=== PATIENT | male | born 1995 | race Caucasian/White ===

== ENCOUNTER 2025-08-13 11:06 | Emergency (ER) | payer OTHER, SELFPAY ==
[2025-08-13 11:09] VITALS: BP 155/95; BMI 34.6
[2025-08-13 11:11] VITALS: BP 155/95
[2025-08-13 11:14] VITALS: BP 147/110
--- NOTE | 2025-08-13 11:57 | ED.GENMED ---
History of Present Illness
General
Chief Complaint: Blood Pressure Problem
Source: patient and police
Exam Limitations: none
Time Seen by Provider: 08/13/25 11:42
History of Present Illness
History of Present Illness:
30yoM with a history of bipolar disorder, anxiety, substance use on methadone, seizures, and hypertension presenting with correctional officers for medical clearance. Patient is in the process of being transferred from [place] to [facility]. There was a transition to a new electronic medical record yesterday and patient missed several doses of his home medications including his antihypertensives, Keppra, and methadone. Patient arrived to the new facility today
and upon intake, his blood pressure was elevated at 166/140 and he was sent to the ED for evaluation. Patient states he feels like 'shit' because he is starting to have withdrawal symptoms after missing his methadone. He states that he knows his
body and just wants to resume his normal home medications. No current chest pain or shortness of breath. He takes propranolol 10mg BID and clonidine 0.2mg Q8 for his blood pressure.
Phy Exam
General Physical Exam
General Presentation: well appearing and no apparent distress
General Skin: warm and dry
General Habitus: normal
General Mental: alert
General Hydration: appears well hydrated
ENT Exam
ENT Exam: normocephalic
Cardiovascular Exam
Cardiovascular Exam: regular rate/rhythm and no murmur
Pulmonary Exam
Pulmonary Exam: lungs clear, no respiratory distress, no rales, no crackles, no rhonchi and no wheezing
Neurological Exam
Neurological Exam: alert
[place] Coma Scale
Eye Opening: Spontaneous
Verbal Response: Oriented
Motor Response: Obeys Commands
GCS Total Score: 15
Skin Exam
Skin Exam: normal color and warm/dry
Psychiatric Exam
Psychiatric Exam: normal mood/affect
Course
Vital Signs
Initial and Last Documented VS:
Initial Vital Signs
Temp Pulse Resp BP Pulse Ox
98.2 F 67 16 155/95 100
08/13/25 11:09 08/13/25 11:09 08/13/25 11:09 08/13/25 11:09 08/13/25 11:09
Last Documented Vital Signs
Temp Pulse Resp BP Pulse Ox
98.2 F 74 16 133/98 100
08/13/25 11:09 08/13/25 12:07 08/13/25 12:07 08/13/25 12:07 08/13/25 12:07
MDM/Problems Addressed
Differential Diagnosis Includes:
30yoM here for medical clearance for incarceration. He was scheduled to transfer to a different residential today. BP elevated on arrival. He missed 2 doses of his blood pressure medications. BP 155/95 in triage. He is well appearing in no distress. He
currently c/o withdrawal symptoms after missing methadone dose but otherwise is feeling well.
Repeat BP 133/98. No indication for testing at this time. He is medically cleared for incarceration and advised to resume his usual home medications. Patient discharged in stable condition.
*Pulse Oximetry
SaO2: 99
Oxygen Mode of Delivery: Room air
Patient hypoxic: no
*Critical Care Note
Total Time (30-74mins, 75-104mins- exclusive of procedures): Not Applicable
ED Attending Note
-
Portions of this chart may have been created with voice recognition software.� Occasional wrong word or��sound alike� substitutions may have occurred due to the inherent limitations of voice recognition software.
Discharge Plan
Departure
Patient Disposition: Home (Routine Discharge)
Date of Disposition: 08/13/25
Time of Disposition: 12:01
Patient with high blood pressure during this ER visit?: Yes
Discharge Problem:
Hypertension
Referrals:
[facility] [Family Provider, General]
Activity Restrictions/Additional Instructions:
Patient is medically cleared for incarceration. Please resume his home medications.
Interventions
Interventions:
*Risk Screen - Suicide Last Done: 08/13/25 11:09
*General Assessment Last Done: 08/13/25 11:09
*Neglect/Abuse Screening Last Done: 08/13/25 11:09
*ED- Fall Risk Assessment Last Done: 08/13/25 11:09
*Nursing Disposition Last Done: 08/13/25 12:07
ED- Cardiac Assessment Last Done: 08/13/25 11:09
ED- Neurological Assessment Last Done: 08/13/25 11:24
ED- Pulmonary Assessment Last Done: 08/13/25 11:24
Discharge Date and Time
Discharge Date/Time: 08/13/25 12:07
Print Language: [place]IZ[place]
[2025-08-13 12:07] VITALS: BP 133/98
== END 2025-08-13 12:07 ==
LOC: EMR 11:06
PROVIDERS: EMERGENCY PHYSICIAN Emergency Medicine
DX: I10 Essential (primary) hypertension (principal); F31.9 Bipolar disorder, unspecified; F11.20 Opioid dependence, uncomplicated; F41.9 Anxiety disorder, unspecified
CPT/HCPCS: 99281